=== PATIENT | male | born 1990 | race African-American/Black ===

== ENCOUNTER 2019-04-07 19:05 | Emergency (ER) | payer OTHER ==
[~2019-04-07] VITALS: Ht 195.6 cm; Wt 95.3 kg
[2019-04-07] MEDS ORDERED: SUDOGEST30 MG PO (20:26)
[2019-04-07] MEDS ORDERED: IBUPROFEN 600600 M1 PO (20:26)
[2019-04-07] MEDS ORDERED: TESSALON PERLE100 MG PO (20:26)
[2019-04-07 21:03] VITALS: BP 144/83
== END 2019-04-07 21:03 | disposition home or self-care (01) ==
LOC: ER 19:05
DX: J02.9 Acute pharyngitis, unspecified (principal); J06.9 Acute upper respiratory infection, unspecified